=== PATIENT | female | born 1995 | race Caucasian/White ===

== ENCOUNTER 2016-09-02 11:52 | Emergency (ER) | payer OTHER ==
--- NOTE | ~2016-09-02 | CR172 ---
[facility] A Service of [facility] & [facility] RADIOLOGY TEXT RESULTS PATIENT: TEETEE ROBINS LOCATION: SED : [birth year] UNIT #: [id number] AGE: [address]: Lynn Nelson SEX: F ORDER DR: [id number] [address] [address] [id number] E MR#: [id number] Acc #: [id number] NAME: TEETEE ROBINS : 1995 SEX: F STUDY DATE/TIME: 09/02/2016 12:07 UNIT: SED ROOM: STUDY DESCRIPTION: CR Knee 3 Views Lt Attending Physician: Lynn Nelson P.A.-C. Ordering Physician: Lynn Nelson P.A.-C. Primary Care Physician: No Primary Care Physician MEDICAL IMAGING REPORT This report is preliminary unless electronic signature is present. EXAM Left knee 3 views, 09/02/16 at 12:07 hours HISTORY A 20-year-old complaining of knee pain since yesterday when patient kicked a box and fell. Patient believes her patella dislocated yesterday but popped back in place. COMPARISON 06/02/2016 FINDINGS AP, cross-table lateral and sunrise views demonstrate no knee joint effusion or fracture. There is no dislocations seen. IMPRESSION There is no knee joint effusion, fracture or dislocation. Dictated by... Norma Oneil M.D. THIS IS AN ELECTRONICALLY VERIFIED REPORT Norma Oneil M.D. at 09/02/2016 2:31 PM Becca TD: 09/02/2016 14:00 JOB #: [id number] MEDICAL IMAGING REPORT Page 1 of 1
[~2016-09-02 11:52] MED LIST: BACTRIM DS TABL1 TA1 PO; BIRTH CONTROL PILL; BIRTH CONTROL PILL PO; FERRO-TIME325 MG PO; FLEXERIL10 M1 PO; FLEXERIL10 MG PO; HYDROCODONE-APA1 T55 PO; INHALER; KEFLEX PO; MOTRIN400 MG PO; NO MEDICATIONS; NORCO 5/325 TAB1 TAB PO; PHENERGAN PO; PHENERGAN25 M1 PO; PRENATAL1 TA1 PO; PREVACID PO; SPRINTEC; TYLENOL #3 PO; VOLTAREN50 MG PO; VOLTAREN75 MG PO; ZANTAC PO; ZOFRAN ODT4 MG/UDTAB PO; ZOLOFT100 MG PO
[2016-09-02] MEDS ORDERED: SLEEP MEDICATION (12:10)
[2016-10-28] MEDS ORDERED: ASPIR-TRIN325 MG (04:04)
[2016-10-28] MEDS ORDERED: HYDROCODON-ACE1 EAC9 PO (04:05)
[2016-10-28] MEDS ORDERED: PHENERGAN12.5 MG PO (04:06)
[2016-10-29] MEDS ORDERED: OMNICEF300 M1 PO (13:12)
[2016-10-29] MEDS ORDERED: FLAGYL PO (13:12)
== END 2016-09-02 12:51 | disposition home or self-care (01) ==
LOC: SED 11:52
DX: S83.412A Sprain of medial collateral ligament of left knee, initial encounter (principal); F32.9 Major depressive disorder, single episode, unspecified; F41.9 Anxiety disorder, unspecified; J45.909 Unspecified asthma, uncomplicated; Z88.5 Allergy status to narcotic agent; Z79.899 Other long term (current) drug therapy; W22.8XXA Striking against or struck by other objects, initial encounter; Y92.009 Unspecified place in unspecified non-institutional (private) residence as the place of occurrence of the external cause
CPT/HCPCS: 73562; 99283

== ENCOUNTER 2016-10-04 06:41 | Emergency (ER) | payer OTHER ==
[~2016-10-04] VITALS: Ht 175.3 cm; Wt 110.0 kg
[~2016-10-04 06:41] MED LIST changes: +SLEEP MEDICATION
[2016-10-28] MEDS ORDERED: ASPIR-TRIN325 MG (04:04)
[2016-10-28] MEDS ORDERED: HYDROCODON-ACE1 EAC9 PO (04:05)
[2016-10-28] MEDS ORDERED: PHENERGAN12.5 MG PO (04:06)
[2016-10-29] MEDS ORDERED: OMNICEF300 M1 PO (13:12)
[2016-10-29] MEDS ORDERED: FLAGYL PO (13:12)
== END 2016-10-04 07:35 | disposition home or self-care (01) ==
LOC: SED 06:41
DX: T78.40XA Allergy, unspecified, initial encounter (principal); J45.909 Unspecified asthma, uncomplicated; F41.9 Anxiety disorder, unspecified; F17.200 Nicotine dependence, unspecified, uncomplicated; Z88.5 Allergy status to narcotic agent
CPT/HCPCS: 99282